=== PATIENT | male | born 1940 ===

== ENCOUNTER 2017-09-11 07:26 | Day surgery (SDC) | payer MEDICARE, OTHER ==
[~2017-09-11] VITALS: Ht 182.9 cm; Wt 130.2 kg
[~2017-09-11 07:26] MED LIST: ASPI81EC; Aspirin EC81 MG PO; CARV25 PO; FURO20 PO; LISI20 PO; OXYACE5T PO; ROSU5 PO
--- NOTE | 2017-09-11 08:12 | NUR ---
History, Chart, Medications and Allergies reviewed before start of procedure. Patient confirms NPO status and agrees with scheduled surgery. Lungs clear T/O to Auscultation. Patient states colon prep results clear. Patient States Post-Procedure ride home has been arranged.
--- NOTE | 2017-09-11 08:47 | NUR ---
09/11/17 0847 Tuyet Sen History, Chart, Medications and Allergies reviewed before start of procedure. Patient confirms NPO status and agrees with scheduled surgery. PATIENT DETERMINED TO BE ASA APPROPRIATE FOR PROPOFOL SEDATION PRIOR TO START OF PROCEDURE BY DR. MCKEON. 3-LEAD EKG REVIEWED WITH PHYSICIAN PRIOR TO START OF PROCEDURE.
--- NOTE | 2017-09-11 09:12 | NUR ---
PT FROM ENDO ROOM 1. BP TRENDING UP. PT AWAKE, NO COMPLAINTS. MD AT BEDSIDE. AT BEDSIDE.
--- NOTE | 2017-09-11 09:32 | NUR ---
Discharge instructions reviewed with patient. Patient verbalizes understanding. Copy given to patient to take home. Patient States Post-Procedure ride home has been arranged. Discharged via wheelchair to private car for ride home.
== END 2017-09-11 22:43 | disposition home or self-care (01) ==
LOC: ORSCMMR 07:26
PROVIDERS: Internal Medicine Gastroenterology
PROC: 0DBK8ZX Excision of Ascending Colon, Via Natural or Artificial Opening Endoscopic, Diagnostic (ICD-10-PCS; principal; 2017-09-11 08:30)
DX: Z12.11 Encounter for screening for malignant neoplasm of colon (principal); D12.2 Benign neoplasm of ascending colon; E78.00 Pure hypercholesterolemia, unspecified; K57.30 Diverticulosis of large intestine without perforation or abscess without bleeding; Z87.891 Personal history of nicotine dependence; E11.9 Type 2 diabetes mellitus without complications; E66.9 Obesity, unspecified; Z68.38 Body mass index [BMI] 38.0-38.9, adult; Z79.82 Long term (current) use of aspirin; Z79.899 Other long term (current) drug therapy
CPT/HCPCS: 82947; 88305; J7120

== ENCOUNTER 2025-06-19 06:00 | Day surgery (SDC) | payer MEDICARE, OTHER ==
[~2025-06-19] VITALS: Ht 182.9 cm; Wt 123.6 kg
[2025-06-19] VITALS (13 sets, daily range): BP systolic 92–120; BP diastolic 59–73
[2025-06-19] MEDS ORDERED: Ropivacaine 0.5% HCl/Pf 123.125 MG,EPINEPHrine HCL 0.25 MG,Ketorolac Tromethamine 15 MG... INFIL SCH (06:20)
[2025-06-19] MEDS ORDERED: Chlorhexidine Mouth Care 15 ML UDC MT SCH (06:20)
[2025-06-19] MEDS ORDERED: CeFAZolin Sodium 2,000 MG in NS 100 ML IV SCH (06:20)
[2025-06-19] MEDS ORDERED: Tranexamic Acid 100 ML IV SCH (06:20)
[2025-06-19] MEDS ORDERED: CeFAZolin Sodium 3,000 MG in NS 100 ML IV SCH ×2 (06:35→15:45)
[2025-06-19] MEDS ORDERED: FentaNYL Citrate 50 MCG/ML 2 ML Injection ONE (06:59)
[2025-06-19] MEDS ORDERED: Midazolam HCl 1MG / ML 2ML Vial ONE ×2 (06:59→08:11)
--- NOTE | 2025-06-19 07:00 | NUR ---
AMBULATORY INTO [facility]. PT REPORTS 5/10 LEFT HIP PAIN. PT A&OX3. HISTORY AND ALLERGIES REVIEWED. LUNGS CLEAR. NO NOTED EDEMA OR SOB. SATS 95% ON RA. NPO STATUS CONFIRMED. CHLORHEXIDINE SHOWER AND WIPE X 2. PT DENTURES GIVEN TO HIS ANDREA.
[2025-06-19] MEDS ORDERED: Phenylephrine HCl 100 MCG/ML-NS 10MLSYR (1MG/10ML) ONE (07:58)
[2025-06-19] MEDS ORDERED: ePHEDrine Sulfate 50 MG/ML 1ML Injection ONE (08:04)
[2025-06-19] MEDS ORDERED: HYDROmorphone HCl/Pf 1MG SYR IV PRN ×3 (08:25→10:15)
[2025-06-19] MEDS ORDERED: FentaNYL Citrate 50 MCG/ML 2 ML Injection IV PRN ×2 (08:30→08:35)
[2025-06-19] MEDS ORDERED: Ondansetron HCl 2 MG / ML 2ML Vial IV PRN ×2 (08:30→10:20)
[2025-06-19] MEDS ORDERED: Ondansetron HCl 2 MG / ML 2ML Vial ONE (08:31)
[2025-06-19] MEDS ORDERED: Magnesium Hydroxide Conc 10 ML UDC PO PRN (10:20)
[2025-06-19] MEDS ORDERED: Metoclopramide HCl 5MG / ML 2ML Vial IV PRN (10:20)
[2025-06-19] MEDS ORDERED: Prochlorperazine Edisylate 10 mg Vial IV PRN (10:25)
[2025-06-19] MEDS ORDERED: Insulin Regular 100 UNIT/ML 10ML Vial SC SCH (11:30)
[2025-06-19] MEDS ORDERED: Ketorolac Tromethamine 15mg Vial IV SCH (12:00)
--- NOTE | 2025-06-19 15:55 | NUR ---
DISCHARGE SUMMARY POD0 L MELINDA, A/OX4, VSS, TOLERATING PO, PAIN TOLERABLE PER PATIENT STATEMENT, ALBE TO DO WELL WITH THERAPY AND VOID INDEPENDENTLY. PIV REMOVED DURING DC INSTRUCTIONS. DISCUSSED DISCHARGE INSTRUCTIONS INCLUDING HOME CARE, MEDICATIONS, AND FOLLOW UPS. NO QUESTIONS AT THIS TIME, PROVIDED ONE ADDITIONAL DRESSING FOR DRESSING CHANGE IN 1 WEEK. ESCORTED OUT TO PRIVATE AUTO TO GO HOME.
== END 2025-06-19 15:39 | disposition home or self-care (01) ==
LOC: ORSCMMR 06:00 → ORD 07:30 → ORSCMMR 07:30 → SURS 10:29 → ORSCMMR 15:39
PROVIDERS: Orthopaedic Surgery
PROC: 0SRB0JA Replacement of Left Hip Joint with Synthetic Substitute, Uncemented, Open Approach (ICD-10-PCS; principal; 2025-06-19 07:30)
DX: M16.12 Unilateral primary osteoarthritis, left hip (principal); M88.9 Osteitis deformans of unspecified bone; Z96.641 Presence of right artificial hip joint; E11.22 Type 2 diabetes mellitus with diabetic chronic kidney disease; I12.9 Hypertensive chronic kidney disease with stage 1 through stage 4 chronic kidney disease, or unspecified chronic kidney disease; N18.9 Chronic kidney disease, unspecified; Z87.891 Personal history of nicotine dependence; E66.9 Obesity, unspecified; Z68.37 Body mass index [BMI] 37.0-37.9, adult
CPT/HCPCS: 72170; 82947; 97110; 97116; 97162; 97530; A9270; C1776; J0166; J0690; J0735; J1885; J2250; J2371; J2405; J2704; J2795; J3010; J7120